=== PATIENT | female | born 2005 | race Caucasian/White ===

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

== ENCOUNTER → 2024-08-08 | Outpatient (CLI) | payer OTHER | LOC: M SLEEP 07:32 | PROVIDERS: ATTEND Pediatrics | DX: R55 Syncope and collapse (principal) ==

== ENCOUNTER → 2024-10-09 | Outpatient (REF) | payer OTHER ==
[2024-10-09 20:56] LABS: GC DNA AMPLIFICATION NEGATIVE (NEGATIVE)
== END ==
LOC: M LAB REF 17:04
PROVIDERS: ATTEND Emergency Medicine Pediatric Emergency Medicine
DX: Z00.00 Encounter for general adult medical examination without abnormal findings (principal)

== ENCOUNTER → 2024-10-24 | Outpatient (CLI) | payer OTHER ==
[2024-10-24 17:48] LABS: IRON (FE) 79 UG/DL (50-170)
[2024-10-24 17:49] LABS: ALBUMIN 3.9 G/DL (3.2-5.2); ALKALINE PHOSPHATASE 59 U/L (35-104); ALT/SGPT 11 U/L (7.0-40); AST/SGOT 11 U/L (<34); BILIRUBIN,TOTAL 0.4 MG/DL (0.3-1.2); BLOOD UREA NITROGEN 11 MG/DL (9-23); CALCIUM LEVEL 9.8 MG/DL (8.5-10.1); CARBON DIOXIDE LEVEL 26 MMOL/L (20-31); CHLORIDE LEVEL 105 MMOL/L (98-107); CREATININE FOR GFR 0.61 MG/DL (0.55-1.30); GLUCOSE, FASTING 100 MG/DL (60-100); PERCENT SATURATION 20.7 % (13.2-45.0); POTASSIUM SERUM 4.2 MMOL/L (3.5-5.1); SODIUM LEVEL 140 MMOL/L (136-145); TOTAL IRON BINDING CAPACITY 381 UG/DL (250-425); TOTAL PROTEIN 8.1 G/DL (5.7-8.2)
[2024-10-24 17:50] LABS: BASO % 0.5 % (0.0-1.0); EOS # 0.1 10^3/uL (0.0-0.5); EOS % 0.6 % (0.0-3.0); FREE T4 1.22 NG/DL (0.83-1.43); HEMATOCRIT 43.7 % (36.0-47.0); HEMOGLOBIN 14.9 g/dl (12.0-15.5); LYMPH # 2.7 10^3/uL (1.5-5.0); LYMPH % 31.3 % (24.0-44.0); MEAN CORPUSCULAR HGB CONC 34.1 g/dl (32.0-36.5); MEAN CORPUSCULAR VOLUME 90.9 fl (80.0-96.0); MONO # 0.5 10^3/uL (0.0-0.8); MONO % 5.7 % (2.0-8.0); NEUTROPHILS # 5.3 10^3/uL (1.5-8.5); NEUTROPHILS % 61.7 % (36.0-66.0); PLATELET COUNT, AUTOMATED 352 10^3/uL (150-450); RED BLOOD COUNT 4.81 10^6/uL (4.00-5.40); WHITE BLOOD COUNT 8.6 10^3/uL (4.0-10.0)
[2024-10-24 17:51] LABS: THYROID STIMULATING HORMONE 2.821 uIU/ML (0.48-4.17); TOTAL 25(OH) VITAMIN D 18.5 NG/ML (20.0-100.0)
== END ==
LOC: M PLALAB 15:23
PROVIDERS: ATTEND Pediatrics
DX: R42 Dizziness and giddiness (principal)

== ENCOUNTER 2024-11-20 07:45 | Outpatient (RCR) | payer OTHER | END 2024-11-21 | LOC: M PT 07:45 | PROVIDERS: ATTEND Surgery | DX: G90.A Postural orthostatic tachycardia syndrome [POTS] (principal); R42 Dizziness and giddiness ==

== ENCOUNTER 2024-12-11 08:30 | Outpatient (RCR) | payer OTHER | END 2024-12-19 | LOC: M PT 08:30 | PROVIDERS: ATTEND Surgery | DX: R42 Dizziness and giddiness (principal) ==

== ENCOUNTER 2024-12-25 15:12 | Outpatient (RCR) | payer OTHER | END 2025-01-19 | LOC: M PT 15:12 | PROVIDERS: ATTEND Surgery | DX: G90.A Postural orthostatic tachycardia syndrome [POTS] (principal) ==

== ENCOUNTER → 2024-12-26 | Outpatient (CLI) | payer OTHER | LOC: M EKG 16:18 | PROVIDERS: ATTEND Pediatrics | DX: R42 Dizziness and giddiness (principal) ==

== ENCOUNTER → 2025-09-01 | Outpatient (REF) | payer OTHER ==
[2025-09-01 18:23] LABS: ALT/SGPT 14 U/L (7.0-40); AST/SGOT 17 U/L (<34); CALCIUM LEVEL 9.2 MG/DL (8.5-10.1); CARBON DIOXIDE LEVEL 24 MMOL/L (20-31); CHLORIDE LEVEL 103 MMOL/L (98-107); CREATININE FOR GFR 0.67 MG/DL (0.55-1.30); GLOMERULAR FILTRATION RATE > 90.0 (>60); POTASSIUM SERUM 4.3 MMOL/L (3.5-5.1); SODIUM LEVEL 137 MMOL/L (136-145)
[2025-09-01 18:25] LABS: BASO # 0.0 10^3/uL (0.0-0.2); BASO % 0.4 % (0.0-1.0); EOS # 0.1 10^3/uL (0.0-0.5); EOS % 0.9 % (0.0-3.0); FREE T4 1.28 NG/DL (0.83-1.43); LYMPH # 1.9 10^3/uL (1.5-5.0); LYMPH % 27.6 % (24.0-44.0); MONO # 0.3 10^3/uL (0.0-0.8); MONO % 4.1 % (2.0-8.0); NEUTROPHILS # 4.5 10^3/uL (1.5-8.5); NEUTROPHILS % 66.9 % (36.0-66.0); PLATELET COUNT, AUTOMATED 373 10^3/uL (150-450)
[2025-09-01 18:29] LABS: ESTIMATED AVERAGE GLUCOSE 94.0 MG/DL (60-110)
== END ==
LOC: M LABDRWCV 17:21
PROVIDERS: ATTEND Physician Assistant Medical
DX: R63.5 Abnormal weight gain (principal); Z13.1 Encounter for screening for diabetes mellitus